=== PATIENT | male | born 1955 | race Caucasian/White ===

== ENCOUNTER 2019-10-31 19:32 | Emergency (ER) | payer MEDICARE, OTHER ==
[~2019-10-31] VITALS: Ht 180.3 cm; Wt 71.0 kg
[2019-10-31 19:53] VITALS: BP 143/101
--- NOTE | 2019-10-31 20:34 | NUR ---
Pt arrives to ed with a retinal tear in left eye. Per patient he started to note a crescent sahni shape blur in his left eye that increased in size for 3 days. Pt then reported 2 days ago all he could see out of his left eye was a speck of light. 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 Pt reports no gonzalez or neuro weaknesses. Pt denies any trauma. Pt [place] and was told it would be better if he came back home as the surgery and recovery could potentially take up to the month. Pt resting in chair. This RN spoke with MD regarding nature of emergency and providers will evaluate and contact optomology. No immediate orders at this time.
--- NOTE | 2019-10-31 20:48 | NUR ---
PT. WAS GIVEN VA TEST AND COULD NOT SEE ANY OF THE CHART WITH BILAT EYES.
== END 2019-10-31 21:59 | disposition home or self-care (01) ==
LOC: ED 21:57
DX: H33.22 Serous retinal detachment, left eye (principal); H54.62 Unqualified visual loss, left eye, normal vision right eye
CPT/HCPCS: 99284